=== PATIENT | female | born 1990 | race Caucasian/White ===

== ENCOUNTER 2016-09-21 06:16 | Day surgery (SDC) | payer BC ==
--- NOTE | ~2016-09-21 | OP ---
Record Of Operation [facility] [address] [place]. [address] NAME: MAHESH HUERTA : 86 STATUS : REG [facility] PAT#: [id number] AGE: 26 ADM/REG DATE : 09/21/16 MR#: [id number] REPORT SERV DATE: 09/21/16 DICTATED BY: BONNIE ESTEVEZ DATE: 09/21/16 REPORT STATUS : Draft TRANSCRIBED BY: [email or web address] DATE: 09/21/16 DATE OF PROCEDURE: 09/21/2016 PREOPERATIVE DIAGNOSIS: Right nasal ala skin lesion. 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 PROCEDURES: 1. Wide local excision of squamous cell carcinoma of the right nasal ala, 0.7 cm. 2. Intermediate closure of the right nasal ala, 1.1 cm. SURGEON: Bonnie Estevez M.D. ANESTHESIA: General. COMPLICATIONS: None. COUNTS: All counts were correct following the procedure. ESTIMATED BLOOD LOSS: Minimal. PREOPERATIVE INFORMED CONSENT: We discussed the risks and benefits of the surgery including, but not limited to bleeding, infection, possible recurrence of the lesion, possible distortion of the nasal ala requiring revision surgeries, possible failure of the local flap if the flap is necessary. She understands the risks and benefits of the surgery, and consent is on the chart. PROCEDURE IN DETAIL: The patient was brought to the operating suite, placed on the operating room table in supine position. General anesthesia was initiated without incident. Face was cleaned and prepped in usual sterile fashion. Following this, the lesion was injected with 1 mL of 1% lidocaine with 1:100,000 epinephrine for hemostasis. Following this, a 15 blade scalpel was used to make an elliptical incision around the lesion in question. Specimen was sent for frozen section to Pathology. Pathology came back consistent with squamous cell carcinoma in situ with positive margins. Repeat margins were taken around the lesion using a 15 blade scalpel. The margins were 12, 3, and 6 o'clock margins, and the 6, 9, 12 o'clock margins. These were sent separately. True margin was inked and sent for permanent section. The wound was then closed in layers using interrupted 5-0 Vicryl suture and 5-0 plain gut suture followed by Mastisol and Steri-Strips. KEENA/SYLVIE Bonnie Estevez M.D. Record Of Operation [facility] [address] [place]. [address] NAME: MAHESH HUERTA : 86 STATUS : [facility] PAT#: [id number] AGE: 26 ADM/REG DATE : 09/21/16 MR#: [id number] REPORT SERV DATE: 09/21/16 DICTATED BY: BONNIE ESTEVEZ DATE: 09/21/16 REPORT STATUS : Draft TRANSCRIBED BY: MODL DATE: 09/21/16 / [id number] CC: Ehsan Capellan D.O.
[~2016-09-21 06:16] MED LIST: ADDER10 PO
== END 2016-09-21 23:59 | disposition home or self-care (01) ==
LOC: MSC 06:16
PROVIDERS: Otolaryngology
PROC: 0HB1XZZ Excision of Face Skin, External Approach (ICD-10-PCS; 2016-09-21)
PROC: 09QKXZZ Repair Nasal Mucosa and Soft Tissue, External Approach (ICD-10-PCS; principal; 2016-09-21 07:15)
DX: D04.39 Carcinoma in situ of skin of other parts of face (principal)
CPT/HCPCS: 84703; 88305; 88331; A9270-GY; J0690; J2250; J2405; J3010